=== PATIENT | male | born 1935 | race Caucasian/White ===

== ENCOUNTER 2020-04-18 07:24 | Inpatient (IN) | payer OTHER ==
[~2020-04-18] VITALS: Ht 190.5 cm; Wt 59.0 kg
[2020-04-18] MEDS ORDERED: GABAPENTIN100 M2 PO (08:09)
[2020-04-18] MEDS ORDERED: NORVASC2.5 MG PO (08:09)
[2020-04-18] MEDS ORDERED: ZESTRIL10 M1 PO (08:09)
[2020-04-18] MEDS ORDERED: PLAVIX75 MG PO (08:10)
[2020-04-18] MEDS ORDERED: METFORMIN HCL1000 M3 PO (08:10)
[2020-04-18] MEDS ORDERED: [UNRECOGNIZED DRUG - OTHER] (08:11)
[2020-04-18] MEDS ORDERED: AMITRIPTYLINE H10 MG PO (08:11)
[2020-04-18] MEDS ORDERED: RANITIDINE HCL300 MG PO (08:11)
== END 2020-04-28 18:39 | disposition home health service (06) | DRG 690 ==
LOC: ER 07:24 → MEDJ 14:14
PROVIDERS: ADMIT Internal Medicine; ATTEND Internal Medicine
PROC: 0DH67UZ Insertion of Feeding Device into Stomach, Via Natural or Artificial Opening (ICD-10-PCS; 2020-04-19)
PROC: 3E0G76Z Introduction of Nutritional Substance into Upper GI, Via Natural or Artificial Opening (ICD-10-PCS; 2020-04-19)
PROC: 0DH63UZ Insertion of Feeding Device into Stomach, Percutaneous Approach (ICD-10-PCS; principal; 2020-04-21)
PROC: 8E0ZXY6 Isolation (ICD-10-PCS; 2020-04-21)
DX: N39.0 Urinary tract infection, site not specified (principal); E46 Unspecified protein-calorie malnutrition; R64 Cachexia; R13.19 Other dysphagia; I10 Essential (primary) hypertension; E11.9 Type 2 diabetes mellitus without complications; B96.20 Unspecified Escherichia coli [E. coli] as the cause of diseases classified elsewhere; E86.0 Dehydration; Z74.01 Bed confinement status; G30.9 Alzheimer's disease, unspecified; F02.80 Dementia in other diseases classified elsewhere, unspecified severity, without behavioral disturbance, psychotic disturbance, mood disturbance, and anxiety